=== PATIENT | female | born 1965 | race Caucasian/White ===

== ENCOUNTER 2017-08-29 09:37 | Emergency (ER) | payer OTHER ==
[~2017-08-29] VITALS: Ht 157.5 cm; Wt 108.9 kg
--- NOTE | 2017-08-29 09:42 | NUR ---
0929 PT TAKEN TO BED [address] [facility]
[2017-08-29 09:46] VITALS: BP 132/78
--- NOTE | 2017-08-29 09:55 | NUR ---
abiel, brought in from [facility] to be seen for abdominal pain related to constipation. patient states "I felt dizzy while going to the restroom." patient denies falling while using restroom. patient currently denies any dizziness, cp, sob, n/v/d. patient was assisted to the restroom. able to ambulate without any dizziness. gait steady. while patient was using restroom, reports having a small bowel movement with blood in stool. assisted patient back to bed. connected to cardiac monitoring, pulse ox. patient in no acute distress at this moment. awaiting md evaluation.
[2017-08-29] MEDS ORDERED: BECL0.0815 INH (09:57)
[2017-08-29] MEDS ORDERED: HYDR25CA1 PO (09:57)
[2017-08-29] MEDS ORDERED: ALBU0.0912 INH (09:57)
[2017-08-29] MEDS ORDERED: PANT40EC PO (09:57)
[2017-08-29] MEDS ORDERED: ATOR40TA PO (09:57)
[2017-08-29] MEDS ORDERED: LISI-420 PO (09:57)
[2017-08-29] MEDS ORDERED: ASPI81EC98 PO (09:57)
[2017-08-29] MEDS ORDERED: TRAZ-286 PO (09:57)
[2017-08-29] MEDS ORDERED: NACL 0.9% 1,000 ML IV SCH (10:28)
[2017-08-29] MEDS ORDERED: MAGNESIUM CITRATE 300 ML BTL PO ONE (10:40)
[2017-08-29 11:06] LABS: BASOPHILS # (AUTO) 0.1 K/uL (0.00-0.22); BASOPHILS % (AUTO) 0.9 % (0.0-2.0); EOSINOPHILS # (AUTO) 0.1 K/uL (0-0.4); EOSINOPHILS % (AUTO) 1.2 % (0.0-4.0); HEMATOCRIT 35.6 % (36-48); HEMOGLOBIN 12.1 g/dL (12.0-16.0); LYMPHOCYTES # (AUTO) 1.2 K/uL (2.5-16.5); LYMPHOCYTES % (AUTO) 17.7 % (20.5-51.1); MEAN CORPUSCULAR HEMOGLOBIN 29 pg (27-31); MEAN CORPUSCULAR HGB CONC 34 g/dL (33-37); MEAN CORPUSCULAR VOLUME 85 fL (80-94); MONOCYTES # (AUTO) 0.4 K/uL (0.8-1.0); MONOCYTES % (AUTO) 5.6 % (1.7-9.3); NEUTROPHILS # (AUTO) 5.1 K/uL (1.8-7.7); NEUTROPHILS % (AUTO) 74.6 % (42.2-75.2); PLATELET COUNT (AUTO) 353 K/uL (140-450); RED BLOOD CELL COUNT(AUTO) 4.21 MIL/uL (4.20-5.40); RED CELL DISTRIBUTION WIDTH 13.6 % (11.6-13.7); WHITE BLOOD COUNT (AUTO) 6.9 K/uL (4.8-10.8)
[2017-08-29 11:09] LABS: CARBON DIOXIDE 28.5 mmol/L (21-32); CREATININE 0.7 mg/dL (0.6-1.3); POTASSIUM 4.5 mmol/L (3.5-5.1)
[2017-08-29 11:09] LABS: APPEARANCE,URINE CLEAR (CLEAR); BILIRUBIN,URINE NEGATIVE (NEGATIVE); BLOOD, URINE NEGATIVE (NEGATIVE); COLOR,URINE YELLOW (YELLOW); LEUKOCYTE ESTERASE ,URINE NEGATIVE (NEGATIVE); NITRITE, URINE NEGATIVE (NEGATIVE); UGLUCOSE NEGATIVE (NEGATIVE)
[2017-08-29 11:10] LABS: PROTHROMBIN TIME 10.8 secs (10.8-13.4)
--- NOTE | 2017-08-29 11:15 | NUR ---
Pt assisted to the restroom. No bowel movement at this time pt states "I just had gas." Pt assisted back into bed 3, placed back onto lunchroom monitor, pulse oximetry and blood pressure monitoring. VSS.
[2017-08-29 11:28] LABS: ALBUMIN 3.3 g/dL (3.4-5.0); TOTAL BILIRUBIN 0.4 mg/dL (0.0-1.0)
[2017-08-29 11:38] LABS: AMYLASE 61 U/L (25-115); LIPASE 163 U/L (73-393)
[2017-08-29 11:51] LABS: RBC,URINE NONE SEEN /HPF (0-5); WBC,URINE NONE SEEN /HPF (0-5)
--- NOTE | 2017-08-29 12:10 | NUR ---
Pt resting comfortably at this time. VSS. All needs addressed. No acute distress noted.
--- NOTE | 2017-08-29 12:44 | NUR ---
patient assisted back from the restroom. patient states " I had a bowel movement. " patient connected to cardiac monitoring, pulse oximetry and bp monitoring. appears comfortable at this time.
--- NOTE | 2017-08-29 14:12 | NUR ---
Patient appears to be resting comfortably in bed. VSS.
--- NOTE | 2017-08-29 15:13 | NUR ---
IV removed, catheter intact and site benign. Applied folded 4x4 gauze and tape to stop bleeding.
--- NOTE | 2017-08-29 15:14 | NUR ---
Taxi cab called and arranged for patient. ETA 30 mins.
[2017-08-29 15:16] VITALS: BP 156/87
--- NOTE | 2017-08-29 15:16 | NUR ---
Patient discharged with v/s stable. Written and verbal after care instructions given and explained. Patient alert, oriented and verbalized understanding of instructions. Ambulatory with steady gait. All questions addressed prior to discharge. ID band removed. Patient advised to follow up with PMD. Pt sent to wait in ER lobby for taxi. Rx of Magnesium Citrate Low Sodium Solution given. Patient educated on indication of medication including possible reaction and side effects. Opportunity to ask questions provided and answered.
== END 2017-08-29 15:16 | disposition home or self-care (01) ==
LOC: MED 09:37
DX: K59.00 Constipation, unspecified (principal); R03.0 Elevated blood-pressure reading, without diagnosis of hypertension; Z90.710 Acquired absence of both cervix and uterus
CPT/HCPCS: 36415; 71045; 80053; 81001; 81025; 82150; 82553; 83605; 83690; 83874; 83880; 84484; 85025; 85610; 85730; 87040; 87086; 93005; 96360; 99285; J7030; Q0092